=== PATIENT | female | born 1965 | race Caucasian/White ===

== ENCOUNTER → 2016-09-25 | Outpatient (CLI) | payer MEDICARE ==
[2016-09-25 12:39] LABS: BUN/CREATININE RATIO 22 (0-10)
== END ==
LOC: LAB 11:34
PROVIDERS: Internal Medicine Nephrology
DX: R80.9 Proteinuria, unspecified (principal)
CPT/HCPCS: 36415; 80053; 82043; 82570; 84156

== ENCOUNTER → 2016-10-23 | Outpatient (CLI) | payer MEDICARE ==
[2016-10-23 13:49] LABS: HEMOGLOBIN 15.9 gm/dl (12.3-15.3); RED BLOOD COUNT 4.91 M/UL (4.00-5.10); WHITE BLOOD COUNT 10.1 K/UL (4.5-11.0)
[2016-10-23 14:09] LABS: BUN/CREATININE RATIO 20 (0-10)
== END ==
LOC: LAB 12:28
PROVIDERS: Family Medicine
DX: E11.9 Type 2 diabetes mellitus without complications (principal); E11.69 Type 2 diabetes mellitus with other specified complication; I10 Essential (primary) hypertension
CPT/HCPCS: 36415; 80048; 80061; 80076; 83036; 85025

== ENCOUNTER → 2020-11-12 | Outpatient (CLI) | payer MEDICARE ==
[~2020-11-12] MED LIST: ASPIRIN81 MG PO; DEXTROSE 50% SY50 ML IVP; ENOXAPARIN80 MG/0.8 SC; GLUCAGEN1 MG/1 ML IM; GLUCOPHAGE XR500 M1 PO; GLUTOSE 1537.5 GM PO; HUMALOG 10100 UNITS/ SC; HYDROCHLOROTHIA25 MG PO; NITROGLYCERIN0.4 MG SL; WARFARIN SODIUM1 MG PO
[2020-11-12 09:47] LABS: HEMOGLOBIN 16.1 gm/dl (12.3-15.3); RED BLOOD COUNT 4.93 M/UL (4.00-5.10); WHITE BLOOD COUNT 11.8 K/UL (4.5-11.0)
[2020-11-12 10:13] LABS: BUN/CREATININE RATIO 14 (0-10)
== END ==
LOC: LAB 08:42
PROVIDERS: Family Medicine
DX: E11.65 Type 2 diabetes mellitus with hyperglycemia (principal); E11.69 Type 2 diabetes mellitus with other specified complication; I10 Essential (primary) hypertension; E55.9 Vitamin D deficiency, unspecified
CPT/HCPCS: 36415; 80053; 80061; 83036; 85027

== ENCOUNTER 2020-12-01 10:14 | Inpatient (IN) | payer MEDICARE, MEDICAID ==
[~2020-12-01] VITALS: Ht 152.4 cm; Wt 65.4 kg
[2020-12-01 11:19] LABS: HEMOGLOBIN 14.5 gm/dl (12.3-15.3); RED BLOOD COUNT 4.45 M/UL (4.00-5.10); WHITE BLOOD COUNT 11.8 K/UL (4.5-11.0)
[2020-12-01 11:59] LABS: BUN/CREATININE RATIO 17 (0-10)
[2020-12-01] MEDS ORDERED: NITROGLYCERIN0.4 MG SL (19:04)
[2020-12-01] MEDS ORDERED: GLUCOPHAGE XR500 M1 PO (19:04)
[2020-12-01] MEDS ORDERED: HYDROCHLOROTHIA25 MG PO (19:04)
[2020-12-01] MEDS ORDERED: WARFARIN SODIUM1 MG PO (19:04)
[2020-12-01] MEDS ORDERED: ASPIRIN81 MG PO (19:05)
[2020-12-02 01:49] LABS: HEMOGLOBIN 13.7 gm/dl (12.3-15.3); RED BLOOD COUNT 4.21 M/UL (4.00-5.10); WHITE BLOOD COUNT 10.5 K/UL (4.5-11.0)
[2020-12-02 02:23] LABS: BUN/CREATININE RATIO 20 (0-10)
[2020-12-03 06:57] LABS: HEMOGLOBIN 14.5 gm/dl (12.3-15.3); RED BLOOD COUNT 4.41 M/UL (4.00-5.10); WHITE BLOOD COUNT 8.7 K/UL (4.5-11.0)
[2020-12-03 07:12] LABS: BUN/CREATININE RATIO 24 (0-10)
[2020-12-03] MEDS ORDERED: ENOXAPARIN80 MG/0.8 SC (18:08)
[2020-12-03] MEDS ORDERED: GLUCAGEN1 MG/1 ML IM (18:08)
[2020-12-03] MEDS ORDERED: DEXTROSE 50% SY50 ML IVP (18:08)
[2020-12-03] MEDS ORDERED: HUMALOG 10100 UNITS/ SC (18:08)
[2020-12-03] MEDS ORDERED: GLUTOSE 1537.5 GM PO (18:08)
== END 2020-12-03 22:27 | disposition short-term general hospital (02) | DRG 286 ==
LOC: ER1 10:14 → M/S 14:05 → CDU 14:05 → M/S 17:53
PROVIDERS: Emergency Medicine; Internal Medicine; Physician Assistant; ADMIT Family Medicine
PROC: 4A023N7 Measurement of Cardiac Sampling and Pressure, Left Heart, Percutaneous Approach (ICD-10-PCS; principal; 2020-12-03)
PROC: B24BZZ4 Ultrasonography of Heart with Aorta, Transesophageal (ICD-10-PCS; 2020-12-03)
PROC: B2111ZZ Fluoroscopy of Multiple Coronary Arteries using Low Osmolar Contrast (ICD-10-PCS; 2020-12-03)
PROC: B2151ZZ Fluoroscopy of Left Heart using Low Osmolar Contrast (ICD-10-PCS; 2020-12-03)
PROC: B3101ZZ Fluoroscopy of Thoracic Aorta using Low Osmolar Contrast (ICD-10-PCS; 2020-12-03)
DX: I25.10 Atherosclerotic heart disease of native coronary artery without angina pectoris (principal); I50.23 Acute on chronic systolic (congestive) heart failure; J96.01 Acute respiratory failure with hypoxia; E11.9 Type 2 diabetes mellitus without complications; E78.5 Hyperlipidemia, unspecified; K21.9 Gastro-esophageal reflux disease without esophagitis; I11.0 Hypertensive heart disease with heart failure; M19.90 Unspecified osteoarthritis, unspecified site; G47.33 Obstructive sleep apnea (adult) (pediatric); Z20.822 Contact with and (suspected) exposure to COVID-19; E87.6 Hypokalemia; Z86.718 Personal history of other venous thrombosis and embolism; Z79.01 Long term (current) use of anticoagulants; Z86.73 Personal history of transient ischemic attack (TIA), and cerebral infarction without residual deficits; Z79.4 Long term (current) use of insulin; Z79.82 Long term (current) use of aspirin; Z85.038 Personal history of other malignant neoplasm of large intestine; Z90.710 Acquired absence of both cervix and uterus; Z88.6 Allergy status to analgesic agent; Z91.013 Allergy to seafood; Z82.49 Family history of ischemic heart disease and other diseases of the circulatory system; Z80.9 Family history of malignant neoplasm, unspecified
CPT/HCPCS: ECHO; 0240U; 36415; 36600; 71045; 75630; 80048; 80053; 82550; 82553; 82803; 82962; 83735; 83874; 83880; 84132; 84484; 85025; 85027; 85610; 85730; 93005; 93306; 99285; C1769; J1644; J1940; J2250; J3010; J7030; Q9963; Q9965; Q9967

== ENCOUNTER → 2020-12-31 | Outpatient (CLI) | payer MEDICARE | LOC: EXRD 08:59 | DX: Z00.00 Encounter for general adult medical examination without abnormal findings (principal); J98.11 Atelectasis; J90 Pleural effusion, not elsewhere classified | CPT/HCPCS: 71046 ==

== ENCOUNTER → 2021-02-13 | Outpatient (CLI) | payer MEDICARE ==
[2021-02-13 14:58] LABS: HEMOGLOBIN 12.6 gm/dl (12.3-15.3); RED BLOOD COUNT 4.1 M/UL (4.00-5.10); WHITE BLOOD COUNT 9.4 K/UL (4.5-11.0)
[2021-02-13 15:25] LABS: BUN/CREATININE RATIO 18 (0-10)
== END ==
LOC: LAB 13:45
PROVIDERS: Family Medicine
DX: E11.65 Type 2 diabetes mellitus with hyperglycemia (principal); E11.69 Type 2 diabetes mellitus with other specified complication; I10 Essential (primary) hypertension; E55.9 Vitamin D deficiency, unspecified
CPT/HCPCS: 36415; 80053; 80061; 83036; 85027

== ENCOUNTER → 2021-02-13 | Outpatient (CLI) | payer MEDICARE, OTHER | LOC: HEART 5 14:27 | DX: I42.9 Cardiomyopathy, unspecified (principal); I50.9 Heart failure, unspecified; I08.3 Combined rheumatic disorders of mitral, aortic and tricuspid valves; I27.20 Pulmonary hypertension, unspecified | CPT/HCPCS: 93306 ==

== ENCOUNTER 2021-05-27 12:28 | Inpatient (IN) | payer MEDICARE, MEDICAID ==
[~2021-05-27] VITALS: Ht 152.4 cm; Wt 70.3 kg
[~2021-05-27 12:28] MED LIST changes: -WARFARIN SODIUM1 MG PO; +WARFARIN SODIUM5 MG PO
[2021-05-27 14:11] LABS: HEMOGLOBIN 12.4 gm/dl (12.3-15.3); RED BLOOD COUNT 4.5 M/UL (4.00-5.10); WHITE BLOOD COUNT 6.9 K/UL (4.5-11.0)
[2021-05-27] MEDS ORDERED: FUROSEMIDE20 MG PO (18:24)
[2021-05-27] MEDS ORDERED: POTASSIUM CHLO10 ME1 PO (18:24)
[2021-05-27] MEDS ORDERED: CLARITIN10 MG PO (18:25)
[2021-05-27] MEDS ORDERED: ALKA-SELTZER O1 EACH PO (18:26)
--- NOTE | 2021-05-28 10:59 | NUR ---
RN NOTIFIED PHARMACY OF PATIENT'S CRITICAL PT AND INR LAB VALUES.
[2021-05-29 06:48] LABS: HEMOGLOBIN 11.4 gm/dl (12.3-15.3); RED BLOOD COUNT 4.28 M/UL (4.00-5.10); WHITE BLOOD COUNT 6.8 K/UL (4.5-11.0)
--- NOTE | 2021-05-29 07:21 | NUR ---
PATIENT'S PT AND INR CONTINUE TO BE CRITICALLY HIGH, MD ALREADY AWARE OF LEVEL ABNORMALITY AND STATED SHE WOULD RECHECK LEVEL THIS AM ONCE ARRIVED AT HOSPITAL. RN TO NOTIFY ON ARRIVAL. NO S/SX OF DISTRESS NOTED TO PATIENT. BED LOCKED AND LOW. CALL LIGHT WITHIN REACH.
--- NOTE | 2021-05-31 03:48 | NUR ---
05/31/2021 @ 00:05 - RN NOTIFIED OF AN OPEN BED AT [facility] FOR PATIENT. RN NOTIFIED PATIENT OF THE AVAILABLE BED. PT REFUSED TRANSFER TO [facility]. RN EXPLAINED TO PATIENT THE IMPORTANCE OF RECEIVING CARE AT . PT STILL REFUSED. 05/31/2021 @ 00:26 - RN NOTIFIED DR. MENG OF PT REFUSAL OF TRANSFER. DR. MENG REQUESTED FOR RN TO CONTACT THE [employer] [employer]. 05/31/2021 @ 01:00 - RN NOTIFIED DR. BOSWELL OF PT REFUSAL OF TRANSFER TO [facility]. DR. BOSWELL REQUESTED RN TO CONTACT THE TRANSFER CENTER TO ASK IF THEY CAN HOLD THE BED UNTIL MORNING, SO DR. ESPARZA AND DR. BOSWELL CAN TALK WITH THE PATIENT THEMSELVES. 05/31/2021 @ 01:18 - RN CONTACTED THE TRANSFER NURSE AT THE TRANSFER CENTER TO ASK ABOUT HOLDING THE BED UNTIL MORNING PER DR BOSWELL. TRANSFER CENTER STATED THAT THEY CAN'T HOLD THE BED, BUT THEY CAN LEAVE HER ON THE LIST SO THE NEXT TIME A BED IS AVAILABLE, IF THE PATIENT CHANGES HER MIND, SHE CAN BE TRANSFERRED AND WILL NOT HAVE TO GO THROUGH THE ACCEPTANCE PROCESS AGAIN.
[2021-05-31 06:59] LABS: HEMOGLOBIN 11.8 gm/dl (12.3-15.3); RED BLOOD COUNT 4.37 M/UL (4.00-5.10); WHITE BLOOD COUNT 7.1 K/UL (4.5-11.0)
[2021-06-01 10:52] LABS: HEMOGLOBIN 11.1 gm/dl (12.3-15.3); RED BLOOD COUNT 4.04 M/UL (4.00-5.10); WHITE BLOOD COUNT 6.3 K/UL (4.5-11.0)
[2021-06-01] MEDS ORDERED: ASPIRIN EC81 MG PO (14:28)
[2021-06-01] MEDS ORDERED: LOPRESSOR 25 MG25 MG PO (14:28)
[2021-06-01] MEDS ORDERED: BUMETANIDE1 MG PO (14:28)
[2021-06-01] MEDS ORDERED: ALDACTONE 25MG25 MG PO (14:28)
[2021-06-01] MEDS ORDERED: ATORVASTATIN CA40 MG PO (14:28)
== END 2021-06-01 16:26 | disposition home health service (06) | DRG 291 ==
LOC: ER1 12:28 → MED SURG 4 17:48 → CDU 17:48 → MED SURG 4 19:43
PROVIDERS: Student in an Organized Health Care Education/Training Program; ADMIT Family Medicine
PROC: B24BZZZ Ultrasonography of Heart with Aorta (ICD-10-PCS; principal; 2021-05-28)
DX: I11.0 Hypertensive heart disease with heart failure (principal); I50.23 Acute on chronic systolic (congestive) heart failure; Z20.822 Contact with and (suspected) exposure to COVID-19; I25.5 Ischemic cardiomyopathy; I25.10 Atherosclerotic heart disease of native coronary artery without angina pectoris; M32.9 Systemic lupus erythematosus, unspecified; M19.90 Unspecified osteoarthritis, unspecified site; Z66 Do not resuscitate; F17.210 Nicotine dependence, cigarettes, uncomplicated; I08.1 Rheumatic disorders of both mitral and tricuspid valves; I27.20 Pulmonary hypertension, unspecified; E87.6 Hypokalemia; E11.9 Type 2 diabetes mellitus without complications; E78.5 Hyperlipidemia, unspecified; Z95.5 Presence of coronary angioplasty implant and graft; Z86.718 Personal history of other venous thrombosis and embolism; Z79.01 Long term (current) use of anticoagulants; Z90.49 Acquired absence of other specified parts of digestive tract; Z88.6 Allergy status to analgesic agent; Z88.8 Allergy status to other drugs, medicaments and biological substances; Z91.013 Allergy to seafood; Z83.6 Family history of other diseases of the respiratory system; Z82.49 Family history of ischemic heart disease and other diseases of the circulatory system; Z84.1 Family history of disorders of kidney and ureter; Z90.710 Acquired absence of both cervix and uterus; Z87.59 Personal history of other complications of pregnancy, childbirth and the puerperium
CPT/HCPCS: ECHO; 36415; 71045; 80048; 80053; 81001; 82550; 82553; 82962; 83735; 83874; 83880; 84132; 84484; 85025; 85027; 85379; 85610; 93005; 93306; 94760; 96374; 96375; 99285; G0378; J1885; J1940; J3475; J7030; Q9967; U0002

== ENCOUNTER → 2021-06-13 | Outpatient (CLI) | payer MEDICARE ==
[~2021-06-13] MED LIST changes: +ALDACTONE 25MG25 MG PO; +ALKA-SELTZER O1 EACH PO; +ASPIRIN EC81 MG PO; +ATORVASTATIN CA40 MG PO; +BUMETANIDE1 MG PO; +CLARITIN10 MG PO; +FUROSEMIDE20 MG PO; +LOPRESSOR 25 MG25 MG PO; +POTASSIUM CHLO10 ME1 PO
[2021-06-13 18:24] LABS: BUN/CREATININE RATIO 22 (0-10)
== END ==
LOC: LBRF 17:35
PROVIDERS: Family Medicine
DX: I11.0 Hypertensive heart disease with heart failure (principal); I50.9 Heart failure, unspecified; I74.9 Embolism and thrombosis of unspecified artery; I42.9 Cardiomyopathy, unspecified; E11.65 Type 2 diabetes mellitus with hyperglycemia; E11.69 Type 2 diabetes mellitus with other specified complication; L93.0 Discoid lupus erythematosus
CPT/HCPCS: 80053; 80061; 85018; 85610

== ENCOUNTER 2021-09-05 16:38 | Inpatient (IN) | payer MEDICARE, MEDICAID ==
[~2021-09-05] VITALS: Ht 152.4 cm; Wt 73.9 kg
[2021-09-05 18:43] LABS: HEMOGLOBIN 11.5 gm/dl (12.3-15.3); RED BLOOD COUNT 4.64 M/UL (4.00-5.10); WHITE BLOOD COUNT 8.8 K/UL (4.5-11.0)
[2021-09-06] MEDS ORDERED: WARFARIN SODIUM1 MG PO (02:58)
[2021-09-06] MEDS ORDERED: BUMETANIDE1 MG PO (03:09)
[2021-09-06 07:46] LABS: RED BLOOD COUNT 4.78 M/UL (4.00-5.10)
[2021-09-06] MEDS ORDERED: ALKA-SELTZER O1 EACH PO (09:56)
[2021-09-06] MEDS ORDERED: NITROGLYCERIN0.4 MG SL (09:57)
[2021-09-07 06:38] LABS: HEMOGLOBIN 10.9 gm/dl (12.3-15.3); WHITE BLOOD COUNT 7.6 K/UL (4.5-11.0)
[2021-09-07 06:46] LABS: RED BLOOD COUNT 4.3 M/UL (4.00-5.10)
[2021-09-15 03:30] LABS: BUN/CREATININE RATIO 26 (0-10)
[2021-09-16] MEDS ORDERED: METOPROLOL SUCC25 MG PO (10:30)
[2021-09-16] MEDS ORDERED: BUMETANIDE2 MG PO (10:30)
[2021-09-16] MEDS ORDERED: KENALOG 0.5% CR15 GM TOP (10:30)
[2021-09-16] MEDS ORDERED: ACETAZOLAMIDE250 MG PO (10:30)
[2021-09-16] MEDS ORDERED: KLOR-CON M2020 MEQ PO (10:30)
== END 2021-09-16 11:51 | disposition home or self-care (01) | DRG 291 ==
LOC: ER1 16:38 → CDU 23:06 → MED SURG 4 23:06
PROVIDERS: Internal Medicine; Physician Assistant Medical; ADMIT Family Medicine
DX: I13.0 Hypertensive heart and chronic kidney disease with heart failure and stage 1 through stage 4 chronic kidney disease, or unspecified chronic kidney disease (principal); I50.23 Acute on chronic systolic (congestive) heart failure; D68.59 Other primary thrombophilia; E87.2 Acidosis; Z20.822 Contact with and (suspected) exposure to COVID-19; Z51.5 Encounter for palliative care; Z66 Do not resuscitate; E87.6 Hypokalemia; I25.10 Atherosclerotic heart disease of native coronary artery without angina pectoris; E78.5 Hyperlipidemia, unspecified; I25.5 Ischemic cardiomyopathy; M32.9 Systemic lupus erythematosus, unspecified; E11.22 Type 2 diabetes mellitus with diabetic chronic kidney disease; N18.2 Chronic kidney disease, stage 2 (mild); R53.81 Other malaise; I77.6 Arteritis, unspecified; F17.210 Nicotine dependence, cigarettes, uncomplicated; E66.9 Obesity, unspecified; Z86.711 Personal history of pulmonary embolism; Z79.01 Long term (current) use of anticoagulants; Z86.73 Personal history of transient ischemic attack (TIA), and cerebral infarction without residual deficits; Z87.19 Personal history of other diseases of the digestive system; Z95.1 Presence of aortocoronary bypass graft; Z90.49 Acquired absence of other specified parts of digestive tract; Z90.710 Acquired absence of both cervix and uterus; Z82.49 Family history of ischemic heart disease and other diseases of the circulatory system; Z80.9 Family history of malignant neoplasm, unspecified; Z88.8 Allergy status to other drugs, medicaments and biological substances; Z91.040 Latex allergy status; Z91.013 Allergy to seafood; Z86.718 Personal history of other venous thrombosis and embolism; Z85.038 Personal history of other malignant neoplasm of large intestine; Z98.891 History of uterine scar from previous surgery; Z87.828 Personal history of other (healed) physical injury and trauma; Z84.1 Family history of disorders of kidney and ureter; Z82.5 Family history of asthma and other chronic lower respiratory diseases; Z88.6 Allergy status to analgesic agent; Z91.14 Patient's other noncompliance with medication regimen; Z68.36 Body mass index [BMI] 36.0-36.9, adult
CPT/HCPCS: 36415; 71045; 80048; 80053; 81001; 82550; 82553; 82962; 83874; 83880; 84132; 84484; 85025; 85027; 85610; 93005; 97110-GP-CQ; 97116; 97116-GP-CQ; 97162; 97165; 97530; 97530-GP-CQ; 97535; 99285; J1940; J3480; U0002

== ENCOUNTER → 2021-10-25 | Outpatient (CLI) | payer MEDICARE ==
[~2021-10-25] MED LIST changes: +ACETAZOLAMIDE250 MG PO; +BUMETANIDE2 MG PO; +KENALOG 0.5% CR15 GM TOP; +KLOR-CON M2020 MEQ PO; +METOPROLOL SUCC25 MG PO; +WARFARIN SODIUM1 MG PO
== END ==
LOC: RAD 11:02
DX: R07.81 Pleurodynia (principal); R91.8 Other nonspecific abnormal finding of lung field
CPT/HCPCS: 71046